=== PATIENT | male | born 1945 | race Caucasian/White ===

== ENCOUNTER 2018-04-30 01:37 | Outpatient (CLI) | payer MEDICARE, BC, SELFPAY ==
[2018-04-30 13:17] LABS: Anion Gap 6.1 mmol/L (3-11); BUN 18 mg/dL (7-18); CO2 29.9 mmol/L (21.0-32.0); CREATININE 0.99 mg/dL (0.70-1.30); Calcium 8.8 mg/dL (8.5-10.1); Chloride 104 mmol/L (98-107); Cholesterol 165 mg/dL (50-200); Glucose 84 mg/dL (70-100); HDL Cholesterol 49 mg/dL (40-60); LDL CHOLESTEROL 109 mg/dL (<100); Potassium 4.4 mmol/L (3.5-5.1); Sodium 140 mmol/L (136-145); Triglyceride 41 mg/dL (30-150)
== END 2018-04-30 01:57 ==
PROVIDERS: PCP Family Medicine; Visit Provider Family Medicine
DX: E78.5 Hyperlipidemia, unspecified (principal); I47.1 Supraventricular tachycardia
CPT/HCPCS: 36415; 80048; 80061; 83721

== ENCOUNTER 2019-03-29 13:13 | Outpatient (CLI) | payer MEDICARE, BC, SELFPAY ==
[2019-04-01 10:44] LABS: PSA, Screening 2.7 ng/ml (0-6.5)
== END 2019-03-29 13:33 ==
PROVIDERS: PCP Family Medicine; Visit Provider Family Medicine
DX: Z80.42 Family history of malignant neoplasm of prostate (principal); Z12.5 Encounter for screening for malignant neoplasm of prostate
CPT/HCPCS: 36415; 84153

== ENCOUNTER 2020-04-30 02:26 | Outpatient (CLI) | payer MEDICARE, BC, SELFPAY ==
[2020-04-30 12:39] LABS: Anion Gap 3.7 mmol/L (3-11); BUN 17 mg/dL (7-18); CO2 30.3 mmol/L (21.0-32.0); CREATININE 0.97 mg/dL (0.70-1.30); Calcium 8.7 mg/dL (8.5-10.1); Calculated LDL 104 mg/dL (<100); Chloride 104 mmol/L (98-107); Cholesterol 172 mg/dL (<200); Glucose 90 mg/dL (74-106); HDL Cholesterol 58 mg/dL (40-60); Magnesium 1.9 mg/dL (1.8-2.4); Potassium 4.4 mmol/L (3.5-5.1); Sodium 138 mmol/L (136-145); Triglyceride 51 mg/dL (<150)
[2020-04-30 12:42] LABS: Hemoglobin A1C 5.3 % (<5.7)
== END 2020-04-30 02:46 ==
PROVIDERS: PCP Nurse Practitioner Family; Visit Provider Nurse Practitioner Family
DX: E78.5 Hyperlipidemia, unspecified (principal); R73.01 Impaired fasting glucose; N40.0 Benign prostatic hyperplasia without lower urinary tract symptoms; Z12.5 Encounter for screening for malignant neoplasm of prostate; Z80.42 Family history of malignant neoplasm of prostate; Z86.79 Personal history of other diseases of the circulatory system
CPT/HCPCS: 36415; 80048; 80061; 84153; 83036; 83735

== ENCOUNTER 2020-08-18 02:04 | Outpatient (CLI) | payer MEDICARE, BC, SELFPAY ==
--- NOTE | 2020-08-18 08:00 | DI.RAD_ITS ---
EXAM: XR CHEST 2V PA LATERAL CLINICAL HISTORY: crackles at left lung base when lying down, wheezE,H/O PNEUMONIA,R06.2 TECHNIQUE: 2D digital imaging was performed. COMPARISON: CR,RF BARIUM SWALLOW from 03/23/2016 FINDINGS: The heart is not enlarged. The lungs are clear and well expanded. No pleural effusion seen. Mediastin al contours appear intact. IMPRESSION: Normal chest. RADIATION DOSE DELIVERED: Total DLP
== END 2020-08-18 02:24 ==
PROVIDERS: PCP Nurse Practitioner Family; Visit Provider Nurse Practitioner
DX: R06.2 Wheezing (principal); Z87.09 Personal history of other diseases of the respiratory system
CPT/HCPCS: 71046

== ENCOUNTER 2021-03-02 16:07 | Outpatient (REF) | payer MEDICARE, BC, SELFPAY ==
[2021-03-04 19:40] LABS: COVID-19 RT-PCR UVMMC Result Negative (Negative)
== END 2021-03-02 16:08 | disposition home or self-care (01) ==
LOC: LBN 16:07
PROVIDERS: PCP Nurse Practitioner Family; Visit Provider Emergency Medicine
DX: Z20.822 Contact with and (suspected) exposure to COVID-19 (principal)
CPT/HCPCS: U0003

== ENCOUNTER → 2022-01-06 10:29 | Outpatient (BNVA) | payer MEDICARE, BC, SELFPAY | PROVIDERS: PCP Nurse Practitioner Family; Referring Provider Nurse Practitioner Family; Visit Provider Physical Therapy Assistant | DX: Z12.11 Encounter for screening for malignant neoplasm of colon (principal) ==

== ENCOUNTER 2022-02-02 09:20 | Day surgery (SDC) | payer MEDICARE, BC, SELFPAY ==
--- NOTE | 2022-02-02 05:33 | W.COLOREPORT ---
Colonoscopy Report Date of procedure: 02/02/22 Pre-op diagnosis general: Colon Cancer screening Post-op diagnosis procedure note: other (polyps and diverticulosis) Procedure: Colonoscopy with polypectomy Surgeon: Angelina Elizondo Anesthesia Type: General:No Airway Estimated blood loss (mL): 3 Pathology: other (ascending polyps and rectal polyp) Complications: None Disposition: same day Indications: The patient is here for Colonoscopy pre-op. His last screening was in 2010 and was unremarkable. He has no family history of colon cancer. He has not had any bowel habit changes. -Discussed colonoscopy bowel prep as well as the procedure. Discussed possible complications of the procedure to include bleeding, pain, perforation, missed small lesion/polyp, sore throat, aspiration and adverse reaction to the medications. Questions were answered to patient?s satisfaction. No guarantees were implied or given.? Prep: Miralax/Dulcolax Procedure Start Time: 10:18 Procedure End Time: 10:40 Retraction Time: 10 minutes Findings: 2 small sessile polyps moderate diverticulosis Procedure Description: After informed consent was obtained the patient was taken to the procedure room and placed in a left decubitous position. Monitors were applied and a time out was done. The patients name, date of , procedure, allergies to medications and metal in their body was reviewed. The patient was then sedated. Once sedated and comfortable a rectal exam was done. External exam was normal. Internal exam revealed a normal sphincter tone and no palpable masses. The prostate felt smooth and slightly enlarged. The scope was then introduced and retro-flexed. No internal hemorrhoids, polyps or masses were identified on retro-flexion. The scope was then advanced to the cecum without difficulty. The ileocecal vlave and appendiceal orifice were identified. The prep was good. The scope was then slowly retracted over 10 minutes back into the rectum. Polyps were removed with cold forceps in the ascending colon and rectum. There was moderate descending and sigmoid diverticulosis noted. The scope was removed and the patient was woken up and taken back to Same day surgery in stable condition. The patient tolerated the procedure well and there were no immediate complications.
--- NOTE | 2022-02-02 05:34 | PDOC.DSDIS_ITS ---
Discharge Plan Disposition Patient Disposition: HOME Condition: Good Discharge Details Reason For Visit: Colonoscopy Attending Provider: Angelina Elizondo Primary Care Provider: Ashlyn Smith Home Meds and New Rx's Prescriptions: Continued fluticasone propionate [Flonase Allergy Relief] 50 mcg/actuation spray,suspension 1 spray WILFREDO DAILY PRN varicella-zoster gE-AS01B (PF) 50 mcg/0.5 mL suspension for reconstitution 0.5 ml IM ONCE Qty: 1 0RF Rx Instructions: 2 doses 2 months apart ibuprofen 200 MG capsule 3 tab PO PRN clotrimazole 1 % cream 1 applic Topical BID PRNQty: 45 Rx Instructions: Apply to anus miconazole nitrate 2 % Cream 1 applic TOPICAL BID melatonin 5 mg Tablet 5 mg PO HS PRN Discontinued bisacodyl [Dulcolax (bisacodyl)] 5 mg tablet,delayed release (DR/EC) 5 mg PO ONCE Qty: 4 0RF Rx Instructions: Take according to provider's instructions for colonoscopy prep. polyethylene glycol 3350 17 gram/dose powder 17 g PO ONCE Qty: 238 0RF Rx Instructions: To be taken as directed by prescriber's office for colonoscopy prep. Discharge Instructions Instructions: Diverticulosis (DC), Colorectal Polyps (DC) Additional Instructions: Findings: 2 polyps Diverticulosis Follow up: will depend on final pathology Please call if you develop: fevers >101.5 Nausea or Vomiting Abdominal pain that is not transient Rectal bleeding that is more then a tbsp A hard abdomen and inability to pass gas DAY SURGERY UNIT POST ENDOSCOPY INSTRUCTIONS Instructions for everyone who is given Anesthesia: For your safety, please do the following for the next 24 Hours: a. Do not drive or operate dangerous equipment b. Do not drink alcohol beverages or use any recreational drugs for the first 24 hours or while taking pain medications. The medications in your body may have a reaction that can be dangerous. c. Do not make any important decisions or sign any important papers 1. Generally there are no restrictions on your activity after a day or so has gone by, but you may feel a bit fatigued for a few days. 2. After you arrive home you may have a light meal and return to a normal diet as you can tolerate it without feeling sick to your stomach. 3. After surgery, you may feel pain or discomfort. This should be only transie nt, but if it persists please contact your doctor. 4. If there are any questions regarding the findings of your procedure, please feel free to contact your doctor. 6. If you are unable to contact your doctor with a problem, contact the hospital at [phone]. 7. Continue all your regular medications unless directed otherwise. I understand the above instructions and have no questions. Signature of Patient or Responsible Adult Escort Date/Time Name of Responsible Adult Escort Signature of Nurse Date/Time Activity:: Activity as Tolerated Diet:: high fiber diet Discharge Orders Discharge Orders: Discharge Order (Routine); Ordered 02/02/22 Ordered By: Angelina Elizondo
[2022-02-02 09:40] VITALS: BP 154/96; PULSE 85; RESP 16; TEMP 36.1; O2SAT 98
[2022-02-02] MEDS: Lactated Ringers 1,000 ML 80 ML IV (09:47)
--- NOTE | 2022-02-02 09:52 | ANES.PREOP_ITS ---
General Info Date of Service Date Performed: 02/02/22 Height: 5 ft 10 in Weight: 75.1 kg Body Mass Index (BMI): 23.7 Surgical Procedure: Operation Date: 02/02/22 10:50 Proposed Procedure Side Surgeon angeles Elizondo MD Meds Allergies and Home Medications Allergies Allergy/AdvReac Type Severity Reaction Status Date / Time bautista flavor Allergy Severe Swelling/Ed Verified 02/02/22 09:35 sissy house dust Allergy Intermediate NASAL Verified 02/02/22 09:35 CONGESTION procaine HCl [From Novocain] Allergy Verified 02/02/22 09:35 procaine AdvReac Intermediate Headache Verified 02/02/22 09:35 cat Allergy Intermediate NASAL Uncoded 02/02/22 09:35 CONGESTION Home Medication Medication Instructions Recorded ibuprofen 200 mg capsule 3 tab PO PRN 02/22/13 clotrimazole 1 % topical cream 1 applic topical BID PRN #45 grams 03/27/18 fluticasone propionate 50 1 spray intranasal DAILY PRN 03/29/19 mcg/actuation nasal spray,suspension (Flonase Allergy Relief) varicella-zoster glycoE vacc-AS01B 0.5 ml IM ONCE #1 ea 04/16/21 adj(PF) 50 mcg/0.5 mL IM susp, kit bisacodyl 5 mg tablet,delayed 5 mg PO ONCE #4 tabs 01/06/22 release (Dulcolax (bisacodyl)) polyethylene glycol 3350 17 17 g PO ONCE #238 grams 01/06/22 gram/dose oral powder melatonin 5 mg tablet 5 mg PO HS PRN 02/01/22 miconazole nitrate 2 % topical 1 applic topical BID 02/01/22 cream Current Visit Medications: Current Medications Generic Name Dose Route Start Last Admin Trade Name Freq PRN Reason Stop Dose Admin Hyoscyamine Sulfate 0.125 mg 02/02/22 05:35 Hyoscyamine 0.125 Mg Sl/Oral/Chew SL DIRECTED PRN Ringer's Solution 1,000 mls @ 80 mls/hr 02/02/22 06:00 02/02/22 09:47 IV 03/03/22 23:59 80 mls/hr INFUSION LAUREN Administration IV Miscellaneous Supplies 1 each 02/02/22 06:00 Iv Access IV 03/03/22 23:59 DIRECTED LAUREN Ondansetron HCl 4 mg 02/02/22 05:35 Ondansetron 4 Mg/2 Ml Vial IVP Q4H PRN PRN Nausea / Vomiting Sodium Chloride 0 ml 02/02/22 06:00 Normal Saline Flush 10 Ml Syr IV 03/03/22 23:59 PRN PRN Sodium Chloride 0 ml 02/02/22 06:00 Normal Saline 10 Ml Vial IJ 03/03/22 23:59 DIRECTED PRN Sterile Water 0 ml 02/02/22 06:00 Water,Injection,Sterile 10 Ml Vial IJ 03/03/22 23:59 DIRECTED PRN PFSH Active Problems Active Problems: Problem Status Onset Code KUNAL (obstructive sleep apnea) G47.33 Screening for colon cancer Z12.11 Medical History Medical History BCC (basal cell carcinoma of skin) [facility] Dermatology annually BPH loc w/o ur obs/LUTS Dysphagia Benign EGD, barium swallow 2010 Hyperlipidemia Low back pain Paroxysmal supraventricular tachycardia (02/22/13) S/p ablation at [facility] in 2017 PLMD (periodic limb movement disorder) Declines treatment; PSG 05/07/18 Surgical History Surgical History History of cardiac radiofrequency ablation 2017 History of cataract surgery Left History of esophagogastroduodenoscopy (EGD) (12/31/10) S/P appendectomy S/P colonoscopy (12/31/10) S/P shoulder surgery Right for dislocation Tobacco Smoking/Tobacco Use Status: Never Passive smoking exposure: Yes Second hand exposure: Yes Alcohol Alcohol Intake: current Alcohol intake frequency: a few times a week Substance Use Substance use: Never Substance use type: does not use Vital Signs and Lab Results Vital Signs Most Recent Vital Signs in EMR: Most Recent Vital Signs Temp Pulse Resp BP Pulse Ox 36.1 C L 85 16 154/96 H 98 02/02/22 09:40 02/02/22 09:40 02/02/22 09:40 02/02/22 09:40 02/02/22 09:40 Lab Results Blood Type / Crossmatch: No Data to Display Complete Blood Count: No Data to Display Complete Metabolic Panel: No Data to Display Liver Function Panel: No Data to Display Coagulation Panel: No Data to Display Cardiac Panel: No Data to Display Arterial Blood Gas: No Data to Display Venous Blood Gas: No Data to Display Pancreas Panel: No Data to Display Thyroid Panel: No Data to Display Infectious Disease: No Data to Display Blood Cultures: No Data to Display Toxicology Panel: No Data to Display Anesthesia Assessment and Plan Anesthesia History Personal History: No History of Anesthesia Complications Family History: No Family History of Anesthesia Complications Exercise Tolerance Exercise Tolerance: Metabolic Equivalents>4 Pertinent Negatives Pertinent Negatives: No Symptoms of GERD Cardiac & Pulmonary Exam Cardiac Exam: Normal S1/S2 Heart Sounds Pulmonary Exam: Clear Bilateral Breath Sounds Implantable Cardiac Device Does patient have a Pacemaker or an ICD?: No Airway Exam Known Difficult Airway: No Mallampati Class: 1 Mouth Opening: Normal (> 3cm) Thyromental Distance: Less than 3 cm Neck Range of Motion: Full ROM Neck Circumference: Normal Teeth Condition: Normal Dentition ASA Classification ASA Score: ASA 2 Emergency Case?: No NPO Status NPO Status: NPO Clears >2 hours, Solids >8 hours Anesthesia Plan Resuscitation Status: Full Code Anesthesia Technique: General Anesthesia Airway Planned: Natural Airway Monitors Used: Standard Monitors
[2022-02-02 10:06] VITALS: BMI 23.7
--- NOTE | 2022-02-02 10:29 | BOWEL_PTH ---
PATIENT: Chino Dowell LOC: [facility] U#:[id number] AGE/SX: 76/M ROOM: RE02/02/[address]: Angelina Elizondo MD : 1945 BED: DIS: 02/02/2022 SPEC #: [id number] RECD: 02/02/22 12:39 STATUS: ANDREY REQ #: [id number] MARIBELL: 02/02/22 10:[address]: Angelina Elizondo DEPT: Surgical Specimen RECD BY: Catalina Ro ENTERED: 02/02/22 12:39 SP TYPE: Bowel OTHR DR: BETHANY Oliveira Tissues: 1 - BIOPSY BOWEL 2 - BIOPSY BOWEL Procedures: GROSS AND MICRO LEVEL 4 Comments: [id number]
[2022-02-02 10:45] VITALS: BP 101/90; PULSE 71; RESP 16; TEMP 36.6; O2SAT 94
--- NOTE | 2022-02-02 11:14 | W.ANESPOSTOP ---
Postoperative Evaluation Date, Time and Location Date Performed: 02/02/22 Time Performed: 10:48 Patient Location: Day Surgery Unit Vital Signs Most Recent Imported Vital Signs: Most Recent Vital Signs Temp Pulse Resp BP Pulse Ox 36.6 C 71 16 101/90 94 02/02/22 10:45 02/02/22 10:45 02/02/22 10:45 02/02/22 10:45 02/02/22 10:45 Pain Score Most Recent Pain Score: Most Recent Pain Score Pain Level 0 02/02/22 10:45 Assessment Mental Status: Awake (Alert & Oriented to Patient Baseline) Airway and Respiratory Function: Patent airway with normal (patient baseline) respiratory exam Cardiovascular Function: Hemodynamically Stable Hydration Status: Adequately Hydrated Nausea & Vomiting: No Nausea or Vomiting Pain: Pt. Denies Any Pain Peripheral Nerve Block: Patient did not receive a nerve block
[2022-02-02 11:15] VITALS: BP 129/78; PULSE 60; RESP 18; TEMP 36.6; O2SAT 99
== END 2022-02-02 11:50 | disposition home or self-care (01) ==
PROVIDERS: PCP Nurse Practitioner Family; Visit Provider Surgery
PROC: 0DJD8ZZ Inspection of Lower Intestinal Tract, Via Natural or Artificial Opening Endoscopic (ICD-10-PCS; CPT 45378; principal; 2022-02-02 10:45)
DX: Z12.11 Encounter for screening for malignant neoplasm of colon (principal); K63.5 Polyp of colon; K62.1 Rectal polyp; K57.30 Diverticulosis of large intestine without perforation or abscess without bleeding
CPT/HCPCS: 45380; 88305

== ENCOUNTER 2022-04-28 02:44 | Outpatient (CLI) | payer MEDICARE, BC, SELFPAY ==
--- NOTE | 2022-04-28 07:30 | DI.RAD_ITS ---
Exam(s) XR THORACIC SPINE COMPLETE EXAM: XR THORACIC SPINE COMPLETE CLINICAL HISTORY: right sided back pain,m54.9. TECHNIQUE: 2D digital imaging was performed of the thoracic spine. Five views were obtained. AP, s sandy's and lateral views were obtained. COMPARISON: No exams were available for comparison FINDINGS: BONES: There is no acute fracture or destructive lesion. There are endplate osteophytes throughout th e thoracic spine. DISKS:Alignment is within normal limits. Disc heights are well maintained. SOFT TISSUE: Visualized lungs are clear. IMPRESSION: Moderate thoracic spondylosis. DATA REPOSITORY: RADIATION DOSE DELIVERED:
--- NOTE | 2022-04-28 07:44 | DI.RAD_ITS ---
Exam(s) XR HIP PELVIS ADULT BL EXAM: XR HIP PELVIS ADULT BL CLINICAL HISTORY: bilat hip pain. TECHNIQUE: 2D digital imaging was performed of the pelvis and bilateral hips. Four images were obta ined. AP pelvis and lateral views of both hips were obtained. COMPARISON: No exams were available for comparison FINDINGS: BONES: No acute fracture is present. No bony destructive lesion is seen. JOINTS: No dislocation present. There is mild joint space narrowing in the hips bilaterally. SOFT TISSUE: Normal. IMPRESSION: Mild degenerative changes of the hips bilaterally. DATA REPOSITORY: RADIATION DOSE DELIVERED:
[2022-04-28 12:20] LABS: Anion Gap 6.1 mmol/L (3-11); BUN 17 mg/dL (7-18); CO2 30.9 mmol/L (21.0-32.0); CREATININE 0.9 mg/dL (0.70-1.30); Calcium 9.1 mg/dL (8.5-10.1); Chloride 104 mmol/L (98-107); Estimated GFR 88.51 (mL/min/1.73m2); Glucose 101 mg/dL (74-106); Potassium 4.8 mmol/L (3.5-5.1); Sodium 141 mmol/L (136-145)
[2022-04-28 23:35] LABS: PSA, Screening 2.3 ng/mL (<=6.5)
== END 2022-04-28 03:04 ==
PROVIDERS: PCP Nurse Practitioner Family; Visit Provider Nurse Practitioner Family
DX: M16.0 Bilateral primary osteoarthritis of hip (principal); M47.814 Spondylosis without myelopathy or radiculopathy, thoracic region; Z12.5 Encounter for screening for malignant neoplasm of prostate
CPT/HCPCS: 36415; 73521; 80048; 84153; 72072

== ENCOUNTER 2022-04-28 10:59 | Outpatient (CLI) | payer MEDICARE, BC, SELFPAY | END 2022-04-28 11:00 | disposition home or self-care (01) | PROVIDERS: PCP Nurse Practitioner Family; Visit Provider Nurse Practitioner Family | DX: I47.1 Supraventricular tachycardia (principal) | CPT/HCPCS: 36415; 73521; 80048; 84153; 93246; 72072 ==

== ENCOUNTER 2022-05-23 08:59 | Outpatient (CLI) | payer MEDICARE, BC, SELFPAY ==
--- NOTE | 2022-05-23 09:16 | W.CARDEVENT ---
Date of service: 05/23/22 Time of Service: 09:16 Cardiac Event Recorder Referring Provider:: Ashlyn Smith Indications:: Supraventricular tachycardia Cardiac Event Note: This is a 14-day cardiac event monitor Predominant rhythm was sinus with an average heart rate of 66. Minimum was 43, maximum 127 There were occasional ventricular ectopic beats, rare couplets and triplets. There was one 8 beat run of nonsustained ventricular tachycardia There were occasional atrial premature beats There was no atrial fibrillation, no significant supraventricular tachycardia, no pauses greater than 3 seconds, no high-grade AV block Patient symptoms overall corresponded to sinus rhythm without dysrhythmia
== END 2022-05-23 09:00 | disposition home or self-care (01) ==
LOC: CARDOPNVT 08:59
PROVIDERS: PCP Nurse Practitioner Family; Visit Provider Internal Medicine Cardiovascular Disease
DX: I47.1 Supraventricular tachycardia (principal)
CPT/HCPCS: 93248

== ENCOUNTER 2023-03-03 11:56 | Day surgery (SDC) | payer MEDICARE, BC, SELFPAY ==
--- NOTE | 2023-03-01 19:27 | HPE_ITS ---
Assessment and Plan Assessment and plan (1) Nuclear age-related cataract, right eye: Status: Acute Assessment and plan: Assessment: Visually significant cataract, right eye. Plan: Cataract extraction with lens implantation, right eye History of Present Illness History of Present Illness Chief Complaint: Progressive decreased vision Narrative: The patient is a 76-year-old male with history of diminished visual acuity in his right eye secondary to the development of dense nuclear cataract. He notes decreased vision at both distance and near and has significant difficulty with his depth perception and severe glare with nighttime driving. He has previously undergone cataract surgery in the left eye 5 to 6 years ago. He is significantly symptomatic that he desires cataract surgery and attempt to improve and maximize his vision. Review of Systems All systems reviewed & are unremarkable except as noted in HPI and below PFSH All Active Problems BPH loc w/o ur obs/LUTS (Chronic) Hyperlipidemia (Chronic) KUNAL (obstructive sleep apnea) (Chronic) PSG 05/07/18; declines CPAP PLMD (periodic limb movement disorder) (Chronic) Declines treatment; PSG 05/07/18 Sigmoid diverticulosis (Chronic) Tubular adenoma of colon (Chronic) on 2021 colonoscopy Osteoarthritis of both hips (Chronic) Nuclear age-related cataract, right eye (Acute) Medical History BCC (basal cell carcinoma of skin) [facility] Dermatology annually COVID-19 (~04/03/22) Dysphagia Benign EGD, barium swallow 2010 Low back pain Paroxysmal supraventricular tachycardia (02/22/13) S/p ablation at [facility] in 2017 Skin cancer removal Surgical History History of cardiac radiofrequency ablation 2017 History of cataract surgery Left History of esophagogastroduodenoscopy (EGD) (12/31/10) S/P appendectomy S/P colonoscopy (12/31/10) 01/2022 S/P shoulder surgery Right for dislocation Family History Mother , 65 No problems noted. Father , 92 Prostate cancer Alzheimer's dementia Sister No problems noted. Brother Prostate cancer Maternal Grandfather Heart disease Maternal Grandmother Heart disease Paternal Grandfather Scleroderma Heart disease Paternal Grandmother No problems noted. Social History Smoking/Tobacco Use Status: Never Second Hand Exposure: Yes Smoking risk assessment performed?: Yes Alcohol Intake: current Alcohol Intake frequency: a few times a week Alcohol type: hard liquor Drug use: Never Substance use type: does not use Caregiver/Support person: No Household members: spouse Housing: house Communication Needs: None Pets and animals: Yes Pets and animals: dog(s) Sexually active: No Do you think of yourself as: straight/heterosexual What is your relationship status?: How often do you talk on the phone with friends or family?: three or more times per week How often do you get together with friends or relatives?: twice per week Do you belong to any clubs or organized social groups?: no Panel score (0-1 are the most socially isolated patients): 2 What type of physical activity do you participate in: walking Duration: 15-30 minutes/day Frequency: daily Blanca/Alevism: No preference Special blanca needs: No Drive intox or ride w/intox driver's license examiner: No Do you feel safe at home: Yes Do you feel safe in your relationship?: Yes Victim of physical abuse: No Victim of emotional abuse: No Victim of sexual abuse: No Would you like helpful sources: No Meds Allergies and Home Medications Allergies Allergy/AdvReac Type Severity Reaction Status Date / Time bautista flavor Allergy Severe Swelling/Ed Verified 03/03/23 12:17 sissy house dust Allergy Intermediate NASAL Verified 03/03/23 12:17 CONGESTION procaine HCl [From Novocain] Allergy Verified 03/03/23 12:17 procaine AdvReac Intermediate Headache Verified 03/03/23 12:17 cat Allergy Intermediate NASAL Uncoded 03/01/23 14:47 CONGESTION Home Medications Medication Instructions Recorded Confirmed Type ibuprofen 200 mg capsule 3 tab PO PRN 02/22/13 03/03/23 History clotrimazole 1 % topical cream 1 applic topical BID PRN #45 grams 03/27/18 03/01/23 History fluticasone propionate 50 1 spray intranasal DAILY PRN 03/29/19 03/03/23 History mcg/actuation nasal spray,suspension (Flonase Allergy Relief) melatonin 5 mg tablet 5 mg PO HS PRN 02/01/22 03/03/23 History miconazole nitrate 2 % topical 1 applic topical BID 02/01/22 03/01/23 History cream cyclobenzaprine 5 mg tablet 5 mg PO TID PRN muscle spasm #14 10/05/22 03/01/23 Rx tabs latanoprost 0.005 % eye drops 1 drp ophthalmic (eye) DAILY 01/18/23 03/03/23 History Exam Eyes Other: Most recent ocular examination is significant for uncorrected visual acuity of 20/100 OD, 20/20 OS. Extract motility is normal. Intraocular pressure is 16 OD, 19 OS. Slit-lamp examination is significant for a well-positioned PCIOL in the left eye with clear posterior capsule. Pupils dilate to 5 mm OU. In the right eye there is a 2-3+ yellow nuclear sclerotic cataract. Funduscopic examination shows disc cupping of 0.7 OD, 0.55 OS. The retinal vasculature is normal. There are a few floaters in the vitreous cavity. In the right eye some drusen are present along the inferior temporal arcade. Peripheral retina is normal. Resp Auscultation: clear to auscultation bilaterally Cardio Rate: regular rate Rhythm: regular rhythm
--- NOTE | 2023-03-03 06:28 | ANES.PREOP_ITS ---
General Info Date of Service Date Performed: 03/03/23 Height: 5 ft 10 in Weight: 78.018 kg Body Mass Index (BMI): 24.7 Surgical Procedure: Operation Date: 03/03/23 13:40 Proposed Procedure Side Surgeon p Cataract Extraction with IOL Implant Right Aydin Sosa MD Meds Allergies and Home Medications Allergies Allergy/AdvReac Type Severity Reaction Status Date / Time bautista flavor Allergy Severe Swelling/Ed Verified 03/03/23 12:17 sissy house dust Allergy Intermediate NASAL Verified 03/03/23 12:17 CONGESTION procaine HCl [From Novocain] Allergy Verified 03/03/23 12:17 procaine AdvReac Intermediate Headache Verified 03/03/23 12:17 cat Allergy Intermediate NASAL Uncoded 03/01/23 14:47 CONGESTION Home Medication Medication Instructions Recorded ibuprofen 200 mg capsule 3 tab PO PRN 02/22/13 clotrimazole 1 % topical cream 1 applic topical BID PRN #45 grams 03/27/18 fluticasone propionate 50 1 spray intranasal DAILY PRN 03/29/19 mcg/actuation nasal spray,suspension (Flonase Allergy Relief) melatonin 5 mg tablet 5 mg PO HS PRN 02/01/22 miconazole nitrate 2 % topical 1 applic topical BID 02/01/22 cream cyclobenzaprine 5 mg tablet 5 mg PO TID PRN muscle spasm #14 10/05/22 tabs latanoprost 0.005 % eye drops 1 drp ophthalmic (eye) DAILY 01/18/23 Current Visit Medications: Current Medications Generic Name Dose Route Start Last Admin Trade Name Freq PRN Reason Stop Dose Admin Acetaminophen 1,000 mg 03/03/23 06:00 Acetaminophen 500 Mg Tab PO 04/02/23 05:59 Q4H PRN PRN Balanced Salt Solution 500 ml 03/03/23 06:00 Balanced Salt Soln.-Plus 500 Ml Bag OP 04/02/23 05:59 DIRECTED LAUREN Miscellaneous Medication 0 ml 03/03/23 06:00 Prednisolone 1%, Moxifloxacin 0.5%, Nepafenac 0.1% 5ml Btl OD 04/02/23 05:59 DIRECTED LAUREN Miscellaneous Medication 0 ml 03/03/23 06:00 Tropicam./Phenyleph. 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 Hyperlipidemia E78.5 KUNAL (obstructive sleep apnea) G47.33 PLMD (periodic limb movement disorder) G47.61 Sigmoid diverticulosis K57.30 Tubular adenoma of colon D12.6 Osteoarthritis of both hips M16.0 Nuclear age-related cataract, right eye H25.11 Medical History Medical History (Updated 03/01/23 @ 14:46 by Mumtaz Mccarty) BCC (basal cell carcinoma of skin) [facility] Dermatology annually COVID-19 (~04/03/22) Dysphagia Benign EGD, barium swallow 2010 Low back pain Paroxysmal supraventricular tachycardia (02/22/13) S/p ablation at [facility] in 2017 Skin cancer removal Surgical History Surgical History History of cardiac radiofrequency ablation 2017 History of cataract surgery Left History of esophagogastroduodenoscopy (EGD) (12/31/10) S/P appendectomy S/P colonoscopy (12/31/10) 01/2022 S/P shoulder surgery Right for dislocation Tobacco Smoking/Tobacco Use Status: Never Passive smoking exposure: Yes Second hand exposure: Yes Alcohol Alcohol Intake: current Alcohol intake frequency: a few times a week Alcohol type: hard liquor Substance Use Substance use: Never Substance use type: does not use Vital Signs and Lab Results Vital Signs Most Recent Vital Signs in EMR: Temp Pulse Resp BP Pulse Ox 36.3 C L 68 18 147/82 H 96 03/03/23 12:19 03/03/23 12:19 03/03/23 12:19 03/03/23 12:19 03/03/23 12:19 Lab Results Blood Type / Crossmatch: No Data to Display Complete Blood Count: No Data to Display Complete Metabolic Panel: No Data to Display Liver Function Panel: No Data to Display Coagulation Panel: No Data to Display Cardiac Panel: No Data to Display Arterial Blood Gas: No Data to Display Venous Blood Gas: No Data to Display Pancreas Panel: No Data to Display Thyroid Panel: No Data to Display Infectious Disease: No Data to Display Blood Cultures: No Data to Display Toxicology Panel: No Data to Display Anesthesia Assessment and Plan Anesthesia History Personal History: No History of Anesthesia Complications Family History: No Family History of Anesthesia Complications Exercise Tolerance Exercise Tolerance: Metabolic Equivalents>4 Cardiac & Pulmonary Exam Cardiac Exam: Normal S1/S2 Heart Sounds Pulmonary Exam: Clear Bilateral Breath Sounds Implantable Cardiac Device Does patient have a Pacemaker or an ICD?: No Airway Exam Known Difficult Airway: No Mallampati Class: 1 Mouth Opening: Normal (> 3cm) Thyromental Distance: Less than 3 cm Neck Range of Motion: Full ROM Neck Circumference: Normal Teeth Condition: Normal Dentition ASA Classification ASA Score: ASA 2 Emergency Case?: No NPO Status NPO Status: NPO Clears >2 hours, Solids >8 hours Anesthesia Plan Resuscitation Status: Full Code Anesthesia Technique: MAC Anesthesia Airway Planned: Natural Airway Monitors Used: Standard Monitors Preoperative Comments:: 77 yo male for cataract removal. No MKO. Sig PMHx: dysphagia, SVT (ablation [facility] 2016), never smoker, occ EtOH. Previous Anes: - colo, prop, natural airway, no issues.
[2023-03-03 11:27] VITALS: BMI 24.7
[2023-03-03 12:19] VITALS: BP 147/82; PULSE 68; RESP 18; TEMP 36.3; O2SAT 96
[2023-03-03] MEDS: Tropicam./Phenyleph. (1/2.5%) 5 ML BTL OD ×3 (12:32→12:42)
[2023-03-03] MEDS: Tetracaine 0.5% 4 ML BTL OD (12:43)
[2023-03-03] MEDS: Balanced Salt Soln.-PLUS 500 ML BAG OP (12:50)
[2023-03-03] MEDS: Duovisc Viscoelastic System EACH 1 EACH (12:51)
[2023-03-03] MEDS: Lidocaine 1% Pres-Free 5 ML VIAL (12:52)
[2023-03-03] MEDS: Povidone-Iodine Ophth 30 ML BTL (12:53)
[2023-03-03] MEDS: Phenylephrine/Lidocaine (15/10) MG/ML 1 ML VIAL (12:53)
[2023-03-03 13:12] VITALS: BP 132/86; PULSE 65; RESP 18; TEMP 36.8; O2SAT 99
--- NOTE | 2023-03-03 13:15 | W.PM.DSUDISC ---
Date of service: 03/03/23 Time of Service: 13:16 Discharge Plan Disposition Patient Disposition: Home Discharge Details Attending Provider: Aydin Sosa Primary Care Provider: Ashlyn Smith Home Meds and New Rx's Prescriptions: No Action fluticasone propionate [Flonase Allergy Relief] 50 mcg/actuation spray,suspension 1 spray WILFREDO DAILY PRN latanoprost 0.005 % drops 1 drp ophthalmic (eye) DAILY cyclobenzaprine 5 mg tablet 5 mg PO TID PRN (Reason: muscle spasm) Qty: 14 0RF Rx Instructions: No drinking alcohol or driving while taking medication ibuprofen 200 MG capsule 3 tab PO PRN clotrimazole 1 % cream 1 applic Topical BID PRNQty: 45 Rx Instructions: Apply to anus miconazole nitrate 2 % Cream 1 applic TOPICAL BID melatonin 5 mg Tablet 5 mg PO HS PRN Discharge Instructions Stand Alone Forms: Post-op Topical Cataract, Ilene Aguilarey (DSU) Discharge Orders Discharge Orders: Discharge Order (Routine); Ordered 03/03/23 Ordered By: Aydin Sosa DS: Diagnosis Discharge Diagnosis (1) Nuclear age-related cataract, right eye: Status: Resolved
--- NOTE | 2023-03-03 13:17 | W.PM.OP ---
Date of service: 03/03/23 Time of Service: 13:17 Operative Note Operative Note DATE OF PROCEDURE: 03/03/23 POST-OP DIAGNOSIS: same PROCEDURE: Cataract extraction using phacoemulsification with intraocular lens implant, right eye SURGEON: Aydin Sosa ANESTHESIA TYPE: Local By Surgeon and MAC Refer to Anesthesia Record ESTIMATED BLOOD LOSS: 0 PATHOLOGY: none sent COMPLICATIONS: None Patient was transported to: same day Patient's condition: stable Implants: Gerardo & Gerardo Tecnis Eyhance [id number] Indications: Progressive visual loss due to cataract, right eye Procedure Description: CATARACT SURGERY OPERATIVE REPORT PREOPERATIVE DIAGNOSIS: 1. Nuclear cataract, right eye POSTOPERATIVE DIAGNOSIS: Same OPERATION: 1. Cataract extraction using phacoemulsification with posterior chamber intraocular lens implant, right eye. IOL: IOL Water Plant Maintenance Mechanic/Model: Gerardo & Gerardo Tecnis Eyhance DIB00 IOL Power: + 20.5 diopters IOL Serial Number: [id number] Optic Diameter: 6.0mm Haptic/Overall Diameter: 13.0mm PHACO INFO: SagarE-nterviewurion Vision System with OZil and Active Fluidics Cumulative Dispersed Energy (CDE): 17.48 seconds SURGEON: Aydin Sosa [place], [place] ANESTHESIA: Monitored Anesthesia Care (MAC), with local sub-tenon's anesthetic infiltration COMPLICATIONS: None SPECIMENS: None INDICATIONS FOR PROCEDURE: The patient is a 77-year-old male with history of diminished visual acuity in his right eye secondary to the development of dense nuclear cataract. He is significantly symptomatic that he desires cataract surgery and attempt to improve and maximize his vision. The option of cataract surgery was offered to the patient and he wished to proceed. See office notes for detailed information. PROCEDURE: The correct surgical eye was identified and marked as the right eye and the pupil was dilated in the preoperative area using mydriatics and cycloplegics. The dilated pupil size was 6.0 mm. The patient elected to proceed without oral sedation. The patient was brought to the operating room where cardiopulmonary monitoring was instituted and surgical time-out was performed, confirming the correct operative eye and IOL power. Topical anesthesia was administered and ophthalmic povidone-iodine 5% was instilled into the conjunctival fornices. The brenda-ocular area was prepped with Betadine 10% solution and draped in the usual sterile fashion for intraocular surgery, including an aperture drape. A Tegaderm transparent film dressing was cut in half and used to cover the lashes and lid margins. Care was taken to sequester the lashes and lid margins under the Tegaderm dressing. A lid speculum was placed between the lids of the operative eye and the Sagar LuxOR Revalia operating microscope was maneuvered into position. Cecilia scissors were then used to make a conjunctival buttonhole approximately 6mm posterior to the limbus in the inferonasal quadrant. Blunt dissection was carried out to expose bare sclera, and a blunt-tipped sub-tenon?s anesthesia cannula was introduced and passed posteriorly along the globe where non-preserved plain lidocaine was injected into posterior sub-Tenon?s space. A sideport knife was used to make a paracentesis port. Intraocular phenylephrine/lidocaine was injected into the anterior chamber. The anterior chamber was filled with viscoelastic. A keratome knife was used to construct a 2-plane clear corneal tunnel extending 2.0mm into clear cornea. A flap was raised on the anterior capsule and capsulorhexis forceps were used to complete a continuous curvilinear capsulorhexis of 5.5 mm. Balanced salt solution was then used to perform cortical cleaving hydrodissection and nuclear hydrodelineation until the lens could be freely rotated within the capsular bag. The lens nucleus was then disassembled and removed within the capsular bag and iris plane using phacoemulsification. Residual cortical material was removed using the I/A handpiece. The posterior capsule was carefully polished to remove as much residual lens epithelial cells as safely possible. The capsular bag was then inflated and the anterior chamber deepened with cohesive viscoelastic. The lens implant described above was inserted into the capsular bag using the Gerardo and Perla Simplicity pre-loaded injector. A Kuglen hook was used to dial the IOL into position. Residual viscoelastic was then removed first from posterior to the IOL, then from the anterior chamber using the I/A handpiece. The lens implant was noted to center nicely within the capsular bag. The incisions were stromally hydrated, and the anterior chamber was reformed using BSS. Then 0.5cc of moxifloxacin 1.0mg/ml were injected into the capsular bag and anterior chamber. The incisions were checked with a Weck spear and found to be secure. Several drops of ophthalmic povidone-iodine 5% were then applied to the eye followed by two drops of Imprimis combination prednisolone/moxifloxacin/nepafenac solution. The drapes were removed and a clear plastic protective eye shield was placed over the eye. The patient was then returned to [facility] Day Surgery in stable condition.
--- NOTE | 2023-03-03 13:35 | W.ANESPOSTOP ---
Postoperative Evaluation Date, Time and Location Date Performed: 03/03/23 Time Performed: 13:35 Patient Location: Day Surgery Unit Vital Signs Most Recent Imported Vital Signs: Most Recent Vital Signs Temp Pulse Resp BP Pulse Ox 36.8 C 65 18 132/86 99 03/03/23 13:12 03/03/23 13:12 03/03/23 13:12 03/03/23 13:12 03/03/23 13:12 Pain Score Most Recent Pain Score: Most Recent Pain Score Pain Level 0 03/03/23 13:12 Assessment Mental Status: Awake (Alert & Oriented to Patient Baseline) Airway and Respiratory Function: Patent airway with normal (patient baseline) respiratory exam Cardiovascular Function: Hemodynamically Stable Hydration Status: Adequately Hydrated Nausea & Vomiting: No Nausea or Vomiting Pain: Pt. Denies Any Pain Peripheral Nerve Block: Patient did not receive a nerve block
== END 2023-03-03 13:48 | disposition home or self-care (01) ==
LOC: SUR 11:56
PROVIDERS: PCP Nurse Practitioner Family; Visit Provider Ophthalmology
PROC: (CPT 66984; principal; 2023-03-03 13:30)
DX: H25.11 Age-related nuclear cataract, right eye (principal)
CPT/HCPCS: 66984; V2632

== ENCOUNTER 2023-04-26 10:15 | Outpatient (CLI) | payer MEDICARE, BC, SELFPAY ==
[2023-04-26 13:12] LABS: BUN 16 mg/dL (7-18); CREATININE 0.9 mg/dL (0.70-1.30); Calcium 9.3 mg/dL (8.5-10.1); Calculated LDL 101 mg/dL (<100); Chloride 104 mmol/L (98-107); Cholesterol 175 mg/dL (<200); Estimated GFR 87.96 (mL/min/1.73m2); Glucose 96 mg/dL (74-106); HDL Cholesterol 64 mg/dL (40-60); Potassium 4.1 mmol/L (3.5-5.1); Sodium 139 mmol/L (136-145); Triglyceride 52 mg/dL (<150)
[2023-04-26 19:08] LABS: PSA, Screening 1.6 ng/mL (<=6.5)
[2023-04-27 09:59] LABS: Hepatitis C Ab w Rflx HCV PCR Negative (Negative)
== END 2023-04-26 10:16 | disposition home or self-care (01) ==
LOC: LOS 10:15
PROVIDERS: PCP Nurse Practitioner Family; Visit Provider Nurse Practitioner Family
DX: Z00.00 Encounter for general adult medical examination without abnormal findings (principal); Z12.5 Encounter for screening for malignant neoplasm of prostate; Z11.59 Encounter for screening for other viral diseases
CPT/HCPCS: 36415; 80048; 80061; 84153; 86803

== ENCOUNTER 2024-06-04 03:09 | Outpatient (CLI) | payer MEDICARE, SELFPAY ==
[2024-06-04 14:37] LABS: HCT 45.8 % (40.0-50.0); HGB 15.3 g/dL (13.5-17.5); MCH 31.4 pg (27.0-33.0); MCHC 33.4 % (32.0-36.0); MCV 94 fL (80-95); MPV 10.8 fL (8.0-11.0); Platelet Count 172 10^3/uL (130-400); RBC 4.88 10^6/uL (4.36-5.78); RDW 13.2 % (11.8-14.1); RDW-SD 46.1 fL; WBC 7.95 10^3/uL (4.4-10.8)
[2024-06-04 15:38] LABS: Anion Gap 7.1 mmol/L (3-11); BUN 22 mg/dL (7-18); CO2 26.9 mmol/L (21.0-32.0); Calcium 9.2 mg/dL (8.5-10.1); Chloride 106 mmol/L (98-107); Estimated GFR 77.04 (mL/min/1.73m2); Ferritin 162 ng/mL (26-388); Glucose 106 mg/dL (74-106); Potassium 4.2 mmol/L (3.5-5.1); Sodium 140 mmol/L (136-145); TSH (W/Ref FT4) 1.93 uIU/mL (0.36-3.74)
[2024-06-04 23:01] LABS: PSA, Screening 1.4 ng/mL (<=6.5)
[2024-06-04 23:41] LABS: HBs Antibody, Quant 46.2 mIU/mL (See Note); Hep B Surface Ab Positive (See Note); Hepatitis B Core Antibody Negative (Negative); Hepatitis B Surface Antigen Negative (Negative)
[2024-06-04 23:46] LABS: Hepatitis C Ab w Rflx HCV PCR Negative (Negative)
[2024-06-04 23:51] LABS: HIV-1/2 Ag & Ab Screen Negative (Negative)
== END 2024-06-04 03:10 | disposition home or self-care (01) ==
LOC: LBO 03:09
PROVIDERS: PCP Nurse Practitioner Family; Visit Provider Nurse Practitioner Family
DX: Z11.59 Encounter for screening for other viral diseases (principal); G47.61 Periodic limb movement disorder; G47.00 Insomnia, unspecified; Z11.4 Encounter for screening for human immunodeficiency virus [HIV]; Z12.5 Encounter for screening for malignant neoplasm of prostate; D64.9 Anemia, unspecified
CPT/HCPCS: 36415; 80048; 84153; 85027; 86704; 86706; 86803; 87340; 87389; 82728; 84443

== ENCOUNTER 2025-05-27 01:22 | Outpatient (CLI) | payer MEDICARE, SELFPAY ==
[2025-05-27 14:56] LABS: Anion Gap 8.4 mmol/L (3-11); BUN 17 mg/dL (9-23); CO2 29.6 mmol/L (20.0-31.0); Calcium 9.3 mg/dL (8.3-10.6); Chloride 105 mmol/L (98-107); Cholesterol 162 mg/dL (<200); Glucose 93 mg/dL (74-106); HDL Cholesterol 74 mg/dL (>40); Potassium 4.3 mmol/L (3.5-5.1); Sodium 143 mmol/L (136-145)
[2025-05-27 18:52] LABS: PSA, Screening 1.6 ng/mL (<=6.5)
== END 2025-05-27 01:23 | disposition home or self-care (01) ==
LOC: LBO 01:22
PROVIDERS: PCP Nurse Practitioner Family; Visit Provider Nurse Practitioner Family
DX: E78.5 Hyperlipidemia, unspecified (principal); Z12.5 Encounter for screening for malignant neoplasm of prostate
CPT/HCPCS: 36415; 80048; 80061; 84153